=== PATIENT | female | born 1965 | race Caucasian/White ===

== ENCOUNTER 2018-06-08 15:05 | Emergency (ER) | payer OTHER ==
[2018-06-08] MEDS ORDERED: Tetan/Diph/Pertus SYR(Tdap)* 0.5 ML SYR(BOOSTRIX) use SYR IM ONE (15:19)
[2018-06-08] MEDS ORDERED: Sodium Bicarbonate 8.4% SYR* 10 ML SYRINGE IV ONE (16:20)
--- NOTE | 2018-06-08 17:00 | ED ---
Skin Complaint - HPI Summary HPI Summary: Rt hand dominant pt here w/ lac to Lt distal dorsal index finger earlier today. Accidentally cut herself while using scissors. Has been bleeding x 1 hour so came in for evaluation. Denies numbness, tingling, weakness. Last tetanus 12 yrs ago. Does not take anti-coagulants. 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 Hx Obtained From: Patient Pain Intensity: 0 - Additional Pertinent History Primary Care Physician: [id number] - Allergy/Home Medications Allergies/Adverse Reactions: Allergies Allergy/AdvReac Type Severity Reaction Status Date / Time fluoxetine Allergy Anaphylatic Verified 06/08/18 15:11 Shock ENVIRONMENTAL Allergy Dizziness Uncoded 05/10/18 09:05 Home Medications: Home Medications Susie-D 24 Hour Tablet 1 tab PO DAILY PRN 06/08/18 [History Confirmed 06/08/18 ] Cholecalciferol (Vitamin D3) [Vitamin D3] 1 tab PO DAILY 06/08/18 [History Confirmed 06/08/18] Denosumab* [Xgeva*] 1 dose .SEE ORDER SEE INSTRUCTIONS 06/08/18 [History Confirmed 06/08/18] Esomeprazole(NF) [Nexium(NF)] 20 mg PO DAILY PRN 06/08/18 [History Confirmed 08/15] Hydrocortisone TAB* [Cortef TAB*] 10 mg PO BEDTIME 06/08/18 [History Confirmed 06/08/18] Hydrocortisone TAB* [Cortef TAB*] 20 mg PO QAM 06/08/18 [History Confirmed 06/08] Letrozole 2.5 mg PO DAILY 06/08/18 [History Confirmed 06/08/18] Levothyroxine TAB* [Synthroid 88 MCG TAB*] 88 mcg PO QAM 06/08/18 [History Confirmed 06/08/18] Ondansetron [Ondansetron Odt] 1 tab PO Q8H PRN 06/08/18 [History Confirmed 06/08] Palbociclib [Ibrance] 125 mg PO SEE INSTRUCTIONS 06/08/18 [History Confirmed 08/15] ZOLMitriptan [Zolmitriptan Odt] 2.5 mg SL DAILY PRN 06/08/18 [History Confirmed 06/08/18] PMH/Surg Hx/FS Hx/Imm Hx Previously Healthy: Yes Endocrine/Hematology History: Denies: Hx Anticoagulant Therapy, Hx Blood Disorders, Hx Diabetes, Hx Anemia , Autoimmune Disease Cardiovascular History: Denies: Hx Hypertension, Hx Pacemaker/ICD, Hx Syncope Respiratory History: Reports: Other Respiratory Problems/Disorders - HISTORY OF MONTHLY EPISODES OF STREP THROAT - NONE IN 15 YEARS Denies: Hx Asthma GI History: Reports: Other GI Disorders - CONSTIPATION - HX OF NO PROBLEMS NOW Denies: Hx Jaundice History: Reports: Other Problems/Disorders - LAST BLADDER INFECTION 20 YEARS AGO, URGE TO URINATE NOT FELT Denies: Hx Renal Disease Musculoskeletal History: Reports: Hx Orthopedic Injury - R elbow replacement Denies: Hx Rheumatoid Arthritis, Hx Osteoporosis Sensory History: Denies: Hx Contacts or Glasses, Hx Hearing Aid Opthamlomology History: Denies: Hx Contacts or Glasses Neurological History: Reports: Hx Headaches - HX OF Psychiatric History: Denies: Hx Panic Disorder - Cancer History Cancer Type, Location and Year: BREAST - RFANCIA MASTECTOMY Hx Chemotherapy: Yes Hx Radiation Therapy: Yes - Surgical History Surgery Procedure, Year, and Place: 2006 RIGHT ARM FRACTURE, RE[facility], [place]. 2006 LEFT MASTECTOMY, [facility]. 2007 REMOVAL OF PLATE FROM RIGHT ARM, [place]. 2009 REMOVAL OF BILATERAL OVARIES, [facility]. 2011 RECONSTRUCTION OF MASTECTOMY, [facility] - Rt MASTECTOMY AND RECON FRANCIA ( TRANSFLAP). [facility]. 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 10/2016-TUMOR REMOVAL CHEST CAVITY Hx Anesthesia Reactions: No - DO NOT USE LEFT ARM/R/T LYMPH NODE REMOVAL - Immunization History Date of Tetanus Vaccine: 2006 Immunizations Up to Date: No - tetanus 12 yrs ago Infectious Disease History: No Infectious Disease History: Denies: Hx of Known/Suspected MRSA, Traveled Outside the [place] in Last 30 Days - Family History Family History: FHx of osteoporosis (mother) - Social History Alcohol Use: Occasionally Hx Substance Use: No Substance Use Type: Reports: None Hx Tobacco Use: No Smoking Status (MU): Never Smoked Tobacco Review of Systems Positive: no symptoms reported Musculoskeletal: Negative Skin: Other - lac Neurological: Negative Psychological: Normal All Other Systems Reviewed And Are Negative: Yes Physical Exam Triage Information Reviewed: Yes Vital Signs On Initial Exam: Initial Vitals Temp Pulse Resp BP Pulse Ox 96.5 F 78 16 141/92 99 06/08/18 15:06 06/08/18 15:06 06/08/18 15:06 06/08/18 15:06 06/08/18 15:06 Vital Signs Reviewed: Yes Appearance: Positive: Well-Appearing, No Pain Distress, Well-Nourished Skin: Positive: Warm, Skin Color Reflects Adequate Perfusion - liner lac over Lt dorsal distal index finger Cardiovascular: Positive: Pulses are Symmetrical in both Upper and Lower Extremities Musculoskeletal: Positive: Normal, Strength/ROM Intact Neurological: Positive: Normal, Sensory/Motor Intact Psychiatric: Positive: Normal Procedures - Laceration/Wound Repair 1 Location: upper extremity - Lt index finger Description: Linear Length, Depth and Shape: 0.5cm x 2mm Laceration/Wound Explored: clean - soaked in hibaclens and water solution Closure: Skin Adhesive, SteriStrips Layer Closure?: No Sterile Dressing Applied?: Yes - steristrips and adhesive + splint - hemodynamically stable Diagnostics - Vital Signs Vital Signs Temp Pulse Resp BP Pulse Ox 06/08/18 15:06 96.5 F 78 16 141/92 99 - Laboratory Lab Statement: Any lab studies that have been ordered have been reviewed, and results considered in the medical decision making process. Course/Dx - Diagnoses Provider Diagnoses: Laceration of left index finger Discharge - Sign-Out/Discharge Documenting (check all that apply): Patient Departure - Discharge Plan Condition: Stable Disposition: HOME Patient Education Materials: Finger Laceration (ED), Skin Adhesive Care (ED), Steristrips (ED) Referrals: Jonathan Mcgowan NP [Primary Care Provider] - Additional Instructions: Rest, ice, elevate Keep splint in place for 10 days until wound heals Do not wet/soak/or remove steristrips - they will fall off on their own in about 5 days If you develop redness, swelling, streaking, purulent drainage, fever or chills seek medical attention - Billing Disposition and Condition Condition: STABLE Disposition: Home
[2018-06-08 17:37] VITALS: BP 109/72
== END 2018-06-08 17:36 | disposition home or self-care (01) ==
LOC: ED 15:05
DX: S61.211A Laceration without foreign body of left index finger without damage to nail, initial encounter (principal); W45.8XXA Other foreign body or object entering through skin, initial encounter; Y92.9 Unspecified place or not applicable
CPT/HCPCS: 90715; 99282

== ENCOUNTER 2018-11-24 10:42 | Emergency (ER) | payer OTHER ==
--- NOTE | 2018-11-24 12:57 | UC ---
Throat Pain/Nasal Bereket HPI - HPI Summary HPI Summary: PT HAS HAD WORSENING ST AND PAIN WITH SWALLOWING FOR ABOUT A WEEK. NO FEVER, N/ D. IS CURRENTLY UNDERGOING CHEMO FOR BREAST CANCER. - History of Current Complaint Chief Complaint: UCGeneralIllness Stated Complaint: SORE THROAT Time Seen by Provider: 11/24/18 12:22 Hx Obtained From: Patient, Family/Landing Support Specialist - SISTER Onset/Duration: Gradual Onset, Lasting Days, Still Present Severity: Moderate Pain Intensity: 8 Pain Scale Used: 0-10 Numeric Cough: Nonproductive Associated Signs & Symptoms: Negative: Wheezing, Fever, Vomiting - Allergies/Home Medications Allergies/Adverse Reactions: Allergies Allergy/AdvReac Type Severity Reaction Status Date / Time fluoxetine Allergy Anaphylatic Verified 06/08/18 15:11 Shock ENVIRONMENTAL Allergy Dizziness Uncoded 05/10/18 09:05 PMH/Surg Hx/FS Hx/Imm Hx Cancer History: Breast Cancer Other History Of: Negative For: Anticoagulant Therapy - Surgical History Surgical History: Yes Surgery Procedure, Year, and Place: 2006 RIGHT ARM FRACTURE, [facility]IR, [place]. 2006 LEFT MASTECTOMY, [facility]. 2007 REMOVAL OF PLATE FROM RIGHT ARM, [facility]. 2009 REMOVAL OF BILATERAL OVARIES, [facility]. 2011 RECONSTRUCTION OF MASTECTOMY, [facility] - Rt MASTECTOMY AND RECON FRANCIA ( TRANSFLAP). [facility]. 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 10/2016-TUMOR REMOVAL CHEST CAVITY - Family History Family History: FHx of osteoporosis (mother) - Social History Alcohol Use: Occasionally Substance Use Type: None Smoking Status (MU): Never Smoked Tobacco - Immunization History Most Recent Influenza Vaccination: 2014 Most Recent Tetanus Shot: unk Most Recent Pneumonia Vaccination: n/a Review of Systems All Other Systems Reviewed And Are Negative: Yes Constitutional: Positive: Negative ENT: Positive: Sore Throat Respiratory: Positive: Negative Cardiovascular: Positive: Negative Gastrointestinal: Positive: Negative, Abdominal Pain Physical Exam Triage Information Reviewed: Yes Appearance: No Pain Distress, Well-Nourished, Ill-Appearing - APPEARS FATIGUED Vital Signs: Initial Vital Signs Temp 98.4 F 11/24/18 10:56 Pulse 110 11/24/18 10:56 Resp 18 11/24/18 10:56 BP 124/79 11/24/18 10:56 Pulse Ox 98 11/24/18 10:56 Laboratory Tests 11/24/18 12:32 Group A Strep Rapid Negative Vital Signs Reviewed: Yes Eyes: Positive: Conjunctiva Clear ENT: Positive: Hearing grossly normal, Pharyngeal erythema, TMs normal, Hoarse voice Neck: Positive: Supple, Nontender, No Lymphadenopathy Respiratory: Positive: No respiratory distress, No accessory muscle use Cardiovascular: Positive: Pulses Normal Abdomen Description: Positive: Soft Musculoskeletal: Positive: No Edema Neurological: Positive: Alert Psychological: Positive: Age Appropriate Behavior Skin: Negative: Rashes Throat Pain/Nasal Course/Dx - Course Course Of Treatment: PT UNDERGOING CHEMO FOR BREAST CANCER. STREP TEST NEGATIVE. MAY BE VIRAL OR CHEMO RELATED ST BUT GIVEN IMMUNOCOMPROMISED STATE WILL COVER WITH ABX. FOLLOW-UP IF NEEDED. - Differential Dx/Diagnosis Provider Diagnosis: Acute pharyngitis Discharge - Sign-Out/Discharge Documenting (check all that apply): Patient Departure All imaging exams completed and their final reports reviewed: No Studies - Discharge Plan Condition: Stable Disposition: HOME Prescriptions: Amoxicillin PO (*) [Amoxicillin 500 MG CAP*] 500 mg PO Q12H #20 cap Patient Education Materials: Pharyngitis (ED) Referrals: Jonathan Mcgowan NP [Primary Care Provider] - If Needed Additional Instructions: STREP TEST NEGATIVE. GIVEN YOUR IMMUNOCOMPROMISED STATUS WILL COVER WITH ABX. KEEP YOUR APPT WITH DR. BRASHER SCHEDULED. IBUPROFEN NEEDED FOR DISCOMFORT. - Billing Disposition and Condition Condition: STABLE Disposition: Home
[2018-11-24 13:07] VITALS: BP 157/98
== END 2018-11-24 13:07 | disposition home or self-care (01) ==
LOC: UCEAST 10:42
DX: J02.9 Acute pharyngitis, unspecified (principal); C50.919 Malignant neoplasm of unspecified site of unspecified female breast; Z88.8 Allergy status to other drugs, medicaments and biological substances; Z91.09 Other allergy status, other than to drugs and biological substances; Z92.21 Personal history of antineoplastic chemotherapy
CPT/HCPCS: 87651; 99212; G0463

== ENCOUNTER 2022-06-08 11:50 | Inpatient (IN) ==
[2022-06-08] MEDS ORDERED: Dexamethasone IV 10 MG in NS 0.9% 50 ML 50 ML IVPB SCH (15:00)
[2022-06-08 16:31] LABS: Hematocrit 37 % (35-47); Hemoglobin 12.2 g/dL (12.0-16.0); Mean Corpuscular HGB Conc 33 g/dL (31-36); Mean Corpuscular Hemoglobin 34 pg (27-31); Mean Corpuscular Volume 103 fL (80-97); Mean Platelet Volume 7.4 fL (7.4-10.4); Platelet Count 212 10^3/uL (150-450); Red Blood Count 3.56 10^6 /uL (3.70-4.87); Red Cell Distribution Width 18 % (10-15)
[2022-06-08 16:32] LABS: ABS Lymphocytes 0.4 10^3/ul (1.0-4.8); ABS Monocytes 0.5 10^3/ul (0-0.8); ABS Neutrophils 20.1 10^3/ul (1.5-7.7); Eosinophil % 0.1 %; Lymphocyte % 1.7 %
[2022-06-08 17:12] LABS: Albumin 3.3 g/dL (3.2-5.2); Albumin/Globulin Ratio 1.5 (1-3); Calcium 8.8 mg/dL (8.6-10.3); Globulin 2.2 g/dL (2-4); Potassium 4.5 mmol/L (3.5-5.0); Total Bilirubin 0.4 mg/dL (0.2-1.0); Total Protein 5.5 g/dL (6.4-8.9); eGFR CKD-EPI 68.6 (>60)
[2022-06-08 19:55] LABS: C Reactive Protein 20.62 mg/L (<8.01)
[2022-06-09] MEDS: Enoxaparin 40 MG/0.4 ML SYR SUBCUT SCH ×2 (00:21→21:48)
[2022-06-09 06:23] LABS: Hematocrit 36 % (35-47); Hemoglobin 11.1 g/dL (12.0-16.0); Mean Corpuscular HGB Conc 31 g/dL (31-36); Mean Corpuscular Hemoglobin 32 pg (27-31); Mean Corpuscular Volume 101 fL (80-97); Mean Platelet Volume 7.3 fL (7.4-10.4); Platelet Count 204 10^3/uL (150-450); Red Blood Count 3.52 10^6 /uL (3.70-4.87); Red Cell Distribution Width 18 % (10-15); White Blood Count 21.3 10^3/uL (3.5-10.8)
[2022-06-09 07:13] LABS: CRP High Sensitivity 22.51 mg/L (<2.00); Calcium 8.3 mg/dL (8.6-10.3); Potassium 4.6 mmol/L (3.5-5.0); eGFR CKD-EPI 82.7 (>60)
[2022-06-09] MEDS ORDERED: ALLEGRA D PO SCH (09:00)
[2022-06-09] MEDS ORDERED: Letrozole 2.5 MG TAB (NF) PO SCH (09:00)
[2022-06-09 09:03] LABS: ABS Basophils 0.1 10^3/ul (0-0.2); ABS Lymphocytes 0.6 10^3/ul (1.0-4.8); ABS Monocytes 1.4 10^3/ul (0-0.8); ABS Neutrophils 19.2 10^3/ul (1.5-7.7); Lymphocyte % 2.6 %
[2022-06-09] MEDS: Calcium (OSCAL) 500 mg TAB PO SCH (09:56)
[2022-06-09] MEDS: Cholecalciferol (VIT D3) 1,000 unit TAB PO SCH (09:57)
[2022-06-09] MEDS: methylPREDNISolone SOD SUCC 40 mg/ml 1 ml VIAL IV SCH ×2 (12:41→17:59)
[2022-06-10] MEDS: methylPREDNISolone SOD SUCC 40 mg/ml 1 ml VIAL IV SCH ×3 (03:26→18:13)
[2022-06-10 06:22] LABS: ABS Lymphocytes 0.5 10^3/ul (1.0-4.8); ABS Neutrophils 14.8 10^3/ul (1.5-7.7); Eosinophil % 0.1 %; Hematocrit 34 % (35-47); Hemoglobin 10.5 g/dL (12.0-16.0); Lymphocyte % 3.1 %; Mean Corpuscular HGB Conc 31 g/dL (31-36); Mean Corpuscular Hemoglobin 31 pg (27-31); Mean Corpuscular Volume 101 fL (80-97); Mean Platelet Volume 7.5 fL (7.4-10.4); Platelet Count 196 10^3/uL (150-450); Red Blood Count 3.34 10^6 /uL (3.70-4.87); Red Cell Distribution Width 18 % (10-15); White Blood Count 16.3 10^3/uL (3.5-10.8)
[2022-06-10 06:45] LABS: Calcium 8.3 mg/dL (8.6-10.3); Potassium 4.4 mmol/L (3.5-5.0); eGFR CKD-EPI 93.4 (>60)
[2022-06-10] MEDS ORDERED: Flumazenil 0.5 mg/5 ml 0.1 MG/ML 5 ml VIAL ONE (08:03)
[2022-06-10] MEDS ORDERED: Midazolam 5 mg/5 ml VIAL 1 mg/ml 5 ml VIAL (5 mg) ONE (08:03)
[2022-06-10] MEDS ORDERED: Naloxone 0.4 mg VIAL 0.4 mg/ml 1 ml VIAL ONE (08:03)
[2022-06-10] MEDS ORDERED: fentaNYL 100 mcg/2 ml 50 MCG/ML VIAL ONE (08:03)
[2022-06-10] MEDS: Cholecalciferol (VIT D3) 1,000 unit TAB PO SCH (11:17)
[2022-06-10] MEDS: Calcium (OSCAL) 500 mg TAB PO SCH (11:18)
[2022-06-10] MEDS: Enoxaparin 40 MG/0.4 ML SYR SUBCUT SCH (22:09)
[2022-06-11] MEDS: methylPREDNISolone SOD SUCC 40 mg/ml 1 ml VIAL IV SCH ×3 (02:28→19:21)
[2022-06-11 05:00] LABS: ABS Basophils 0.1 10^3/ul (0-0.2); ABS Lymphocytes 0.5 10^3/ul (1.0-4.8); ABS Monocytes 0.9 10^3/ul (0-0.8); ABS Neutrophils 10.8 10^3/ul (1.5-7.7); Eosinophil % 0.1 %; Hematocrit 33 % (35-47); Hemoglobin 10.5 g/dL (12.0-16.0); Lymphocyte % 4.4 %; Mean Corpuscular HGB Conc 32 g/dL (31-36); Mean Corpuscular Hemoglobin 32 pg (27-31); Mean Corpuscular Volume 100 fL (80-97); Platelet Count 193 10^3/uL (150-450); Red Blood Count 3.33 10^6 /uL (3.70-4.87); Red Cell Distribution Width 17 % (10-15); White Blood Count 12.4 10^3/uL (3.5-10.8)
[2022-06-11 05:54] LABS: Calcium 8.5 mg/dL (8.6-10.3); Potassium 4.6 mmol/L (3.5-5.0); eGFR CKD-EPI 87.7 (>60)
[2022-06-11] MEDS: Calcium (OSCAL) 500 mg TAB PO SCH (10:09)
[2022-06-11] MEDS: Cholecalciferol (VIT D3) 1,000 unit TAB PO SCH (10:10)
[2022-06-11] MEDS: Enoxaparin 40 MG/0.4 ML SYR SUBCUT SCH (21:28)
[2022-06-12] MEDS: methylPREDNISolone SOD SUCC 40 mg/ml 1 ml VIAL IV SCH ×2 (02:55→10:07)
[2022-06-12 06:27] LABS: Hematocrit 34 % (35-47); Hemoglobin 10.9 g/dL (12.0-16.0); Mean Corpuscular HGB Conc 32 g/dL (31-36); Mean Corpuscular Hemoglobin 32 pg (27-31); Mean Corpuscular Volume 101 fL (80-97); Platelet Count 198 10^3/uL (150-450); Red Blood Count 3.41 10^6 /uL (3.70-4.87); Red Cell Distribution Width 17 % (10-15); White Blood Count 10.1 10^3/uL (3.5-10.8)
[2022-06-12 07:01] LABS: Calcium 8.8 mg/dL (8.6-10.3); Potassium 4.6 mmol/L (3.5-5.0); eGFR CKD-EPI 93.4 (>60)
[2022-06-12 07:34] LABS: ABS Lymphocytes 0.5 10^3/ul (1.0-4.8); ABS Monocytes 0.8 10^3/ul (0-0.8); ABS Neutrophils 8.8 10^3/ul (1.5-7.7); Eosinophil % 0.1 %; Lymphocyte % 5.1 %
[2022-06-12] MEDS: Cholecalciferol (VIT D3) 1,000 unit TAB PO SCH (09:05)
[2022-06-12] MEDS: Calcium (OSCAL) 500 mg TAB PO SCH (09:05)
[2022-06-12] MEDS: Enoxaparin 40 MG/0.4 ML SYR SUBCUT SCH (21:24)
[2022-06-13 06:10] LABS: Hematocrit 33 % (35-47); Hemoglobin 10.6 g/dL (12.0-16.0); Mean Corpuscular HGB Conc 33 g/dL (31-36); Mean Corpuscular Hemoglobin 33 pg (27-31); Mean Corpuscular Volume 100 fL (80-97); Mean Platelet Volume 7.4 fL (7.4-10.4); Platelet Count 215 10^3/uL (150-450); Red Blood Count 3.26 10^6 /uL (3.70-4.87); Red Cell Distribution Width 17 % (10-15); White Blood Count 10.6 10^3/uL (3.5-10.8)
[2022-06-13 06:12] LABS: ABS Lymphocytes 0.6 10^3/ul (1.0-4.8); ABS Monocytes 0.8 10^3/ul (0-0.8); ABS Neutrophils 9.1 10^3/ul (1.5-7.7); Eosinophil % 0.1 %; Nucleated Red Blood Cells % 0.1
[2022-06-13 06:22] LABS: Calcium 8.9 mg/dL (8.6-10.3); Potassium 4.5 mmol/L (3.5-5.0); eGFR CKD-EPI 86.4 (>60)
[2022-06-13] MEDS: Calcium (OSCAL) 500 mg TAB PO SCH (08:15)
[2022-06-13] MEDS: Cholecalciferol (VIT D3) 1,000 unit TAB PO SCH (08:16)
[2022-06-13 11:22] VITALS: BP 144/73
[2022-06-13] MEDS ORDERED: Furosemide 20 mg/2 ml IV VIAL IV ONE (11:58)
[2022-06-13 15:54] LABS: Parvovirus (B19) IgG Antibody Positive (Negative); Parvovirus (B19) IgM Antibody Negative (Negative)
== END 2022-06-13 13:30 | disposition home or self-care (01) | DRG 385 ==
LOC: ED 11:50 → EDHOLD 11:50 → MED 06-09 08:54
PROVIDERS: ADMIT Internal Medicine; ATTEND Internal Medicine

== ENCOUNTER 2022-10-16 09:46 | Observation (INO) ==
[2022-10-16 11:25] LABS: Hematocrit 25 % (35-47); Hemoglobin 8.2 g/dL (12.0-16.0); Mean Corpuscular HGB Conc 33 g/dL (31-36); Mean Corpuscular Hemoglobin 34 pg (27-31); Mean Corpuscular Volume 104 fL (80-97); Mean Platelet Volume 8.2 fL (7.4-10.4); Platelet Count 135 10^3/uL (150-450); Red Cell Distribution Width 21 % (10-15); White Blood Count 7.7 10^3/uL (3.5-10.8)
[2022-10-16 12:10] LABS: Albumin 2.7 g/dL (3.2-5.2); Albumin/Globulin Ratio 1.6 (1-3); C Reactive Protein 121.32 mg/L (<8.01); Creatinine, Serum 1.69 mg/dL (0.51-0.95); Globulin 1.7 g/dL (2-4); Magnesium 2.3 mg/dL (1.9-2.7); Phosphorus 2.8 mg/dL (2.5-5.0); Potassium 2.9 mmol/L (3.5-5.0); Total Bilirubin 0.9 mg/dL (0.2-1.0); Total Protein 4.4 g/dL (6.4-8.9); eGFR CKD-EPI 35.2 (>60)
[2022-10-16] MEDS ORDERED: Potassium Chlor 20 meq TAB.ER PO ONE (12:18)
[2022-10-16] MEDS ORDERED: NS 0.9% 500 ml BAG 500 ML IV ONE (12:32)
[2022-10-16 12:38] LABS: Anisocytosis 2+; Macrocytosis 1+; Polychromasia 1+; Tear Drop Cells 1+
[2022-10-16 12:39] LABS: ABS Lymphocytes 0.4 10^3/ul (1.0-4.8); ABS Monocytes 0.1 10^3/ul (0-0.8); ABS Neutrophils 7.2 10^3/ul (1.5-7.7); Eosinophil % 0.2 %
[2022-10-16] MEDS: KCL 10 MEQ/50 ML IVPREMIX 10 MEQ/50 ML BAG IV SCH ×3 (12:59→15:55)
[2022-10-16] MEDS ORDERED: Lactated Ringers 1000 ml BAG 1,000 ML IV ONE (13:50)
[2022-10-16] MEDS ORDERED: Enoxaparin 30 MG/0.3 ML SYR SUBCUT SCH (14:00)
[2022-10-17 08:12] LABS: ABS Lymphocytes 0.2 10^3/ul (1.0-4.8); ABS Monocytes 0.1 10^3/ul (0-0.8); ABS Neutrophils 6.9 10^3/ul (1.5-7.7); Eosinophil % 0.1 %; Hematocrit 23 % (35-47); Hemoglobin 7.3 g/dL (12.0-16.0); Lymphocyte % 2.6 %; Mean Corpuscular HGB Conc 33 g/dL (31-36); Mean Corpuscular Hemoglobin 34 pg (27-31); Mean Corpuscular Volume 105 fL (80-97); Mean Platelet Volume 7.9 fL (7.4-10.4); Platelet Count 127 10^3/uL (150-450); Red Blood Count 2.14 10^6 /uL (3.70-4.87); Red Cell Distribution Width 21 % (10-15); White Blood Count 7.1 10^3/uL (3.5-10.8)
[2022-10-17 08:51] LABS: Urine Appearance Cloudy; Urine Bilirubin Negative (Negative); Urine Blood 3+ (Negative); Urine Color Yellow; Urine Glucose Negative (Negative); Urine Ketones Negative (Negative); Urine Nitrite Negative (Negative); Urine Protein 1+(30 mg/dL) (Negative); Urine Specific Gravity 1.009 (1.002-1.030); Urine Urobilinogen Negative (Negative)
[2022-10-17 08:57] LABS: Urine Bacteria Absent (Absent); Urine Red Blood Cell 3+(>10/hpf) (Absent); Urine Squamous Epithelial Cell Present (Absent); Urine White Blood Cell 2+(11-20/hpf) (Absent)
[2022-10-17 10:21] LABS: Calcium 6.9 mg/dL (8.6-10.3); Potassium 3.9 mmol/L (3.5-5.0)
[2022-10-17 10:27] LABS: Creatinine, Serum 1.43 mg/dL (0.51-0.95)
[2022-10-17 11:32] VITALS: BP 128/74
== END 2022-10-17 12:55 | disposition home or self-care (01) ==
LOC: EDHOLD 09:46 → ED 09:46 → MEDTELE 16:00
PROVIDERS: ADMIT Student in an Organized Health Care Education/Training Program; ATTEND Student in an Organized Health Care Education/Training Program

== ENCOUNTER 2022-11-27 12:45 | Inpatient (IN) ==
[2022-11-27 15:31] LABS: Hematocrit 23 % (35-47); Hemoglobin 7.5 g/dL (12.0-16.0); Mean Corpuscular HGB Conc 32 g/dL (31-36); Mean Corpuscular Hemoglobin 34 pg (27-31); Mean Corpuscular Volume 105 fL (80-97); Mean Platelet Volume 8.2 fL (7.4-10.4); Platelet Count 222 10^3/uL (150-450); Red Cell Distribution Width 21 % (10-15); White Blood Count 7.5 10^3/uL (3.5-10.8)
[2022-11-27 16:12] LABS: Albumin/Globulin Ratio 1.6 (1-3); Calcium 7.9 mg/dL (8.6-10.3); Creatinine, Serum 1.58 mg/dL (0.51-0.95); Globulin 1.9 g/dL (2-4); Total Bilirubin 1.2 mg/dL (0.2-1.0); Total Protein 4.9 g/dL (6.4-8.9); eGFR CKD-EPI 38.2 (>60)
[2022-11-27] MEDS ORDERED: Furosemide 40 mg/4 ml IV VIAL IV SLOW PU ONE ×2 (16:27→18:26)
[2022-11-27 17:02] LABS: High Sensitivity Troponin 1 Hr 46 pg/mL (<15)
[2022-11-27 17:27] LABS: Anisocytosis 3+
[2022-11-27 17:28] LABS: Basophilic Stippling 1+; Macrocytosis 1+; Polychromasia 1+
[2022-11-27 17:29] LABS: Tear Drop Cells 1+
[2022-11-27 17:53] LABS: ABS Lymphocytes 0.9 10^3/ul (1.0-4.8); ABS Monocytes 1.2 10^3/ul (0-0.8); ABS Neutrophils 5.3 10^3/ul (1.5-7.7); ABS Nucleated RBC 0.2 10^3/ul; Eosinophil % 0.4 %; Lymphocyte % 11.9 %; Nucleated Red Blood Cells % 3.1
[2022-11-27] MEDS ORDERED: Triamcinolone 0.025% OINT 15 GM TUBE TOPICAL PRN (18:18)
[2022-11-27 18:44] LABS: TSH Ultra Thyroid Stim Horm 0.01 mcIU/mL (0.34-5.60)
[2022-11-27 18:52] LABS: Folate 9.84 ng/mL (5.90-24.80)
[2022-11-27 20:17] LABS: T4, Total 12.8 mcg/dL (6.09-12.23)
[2022-11-27 20:21] LABS: Free T3 1.5 pg/mL (2.5-3.9)
[2022-11-27] MEDS: Enoxaparin 30 MG/0.3 ML SYR SUBCUT SCH (20:43)
[2022-11-27] MEDS: Nystatin SUSPENSION 100,000 UNITS/ML UDC SWISH SWAL SCH (20:44)
[2022-11-27] MEDS: guaiFENesin/CODIENE 100mg/10mg 5 ML UDC PO SCH (20:44)
[2022-11-28 06:07] LABS: Hematocrit 26 % (35-47); Hemoglobin 8.5 g/dL (12.0-16.0); Mean Corpuscular HGB Conc 33 g/dL (31-36); Mean Corpuscular Hemoglobin 33 pg (27-31); Mean Corpuscular Volume 100 fL (80-97); Mean Platelet Volume 8.4 fL (7.4-10.4); Platelet Count 204 10^3/uL (150-450); Red Blood Count 2.56 10^6 /uL (3.70-4.87); Red Cell Distribution Width 24 % (10-15); White Blood Count 8.3 10^3/uL (3.5-10.8)
[2022-11-28 06:41] LABS: Creatinine, Serum 1.71 mg/dL (0.51-0.95); Potassium 3.9 mmol/L (3.5-5.0)
[2022-11-28 06:42] LABS: Calcium 7.5 mg/dL (8.6-10.3); HDL Cholesterol 28.6 mg/dL; Magnesium 2.2 mg/dL (1.9-2.7); eGFR CKD-EPI 34.7 (>60)
[2022-11-28] MEDS ORDERED: KCL 10 MEQ/50 ML IVPREMIX 10 MEQ/50 ML BAG IV ONE (07:53)
[2022-11-28] MEDS: guaiFENesin/CODIENE 100mg/10mg 5 ML UDC PO SCH ×3 (09:04→21:28)
[2022-11-28] MEDS: Nystatin SUSPENSION 100,000 UNITS/ML UDC SWISH SWAL SCH ×4 (09:05→21:30)
[2022-11-28] MEDS ORDERED: Furosemide 40 mg/4 ml IV VIAL IV ONE (09:25)
[2022-11-28 09:28] LABS: Anisocytosis 2+; Macrocytosis 1+; Polychromasia 1+
[2022-11-28 09:36] LABS: ABS Basophils 0.1 10^3/ul (0-0.2); ABS Eosinophils 0.1 10^3/ul (0-0.6); ABS Lymphocytes 0.9 10^3/ul (1.0-4.8); ABS Monocytes 1.2 10^3/ul (0-0.8); ABS Neutrophils 6.1 10^3/ul (1.5-7.7); ABS Nucleated RBC 0.2 10^3/ul; Eosinophil % 0.6 %; Lymphocyte % 10.7 %; Nucleated Red Blood Cells % 2.5
[2022-11-28] MEDS ORDERED: Metoprolol Tartrate 5 mg VIAL 5 ml VIAL (1 mg/ml) IV PRN (14:40)
[2022-11-28] MEDS: Metoprolol Tartrate 5 mg VIAL 5 ml VIAL (1 mg/ml) IV PRN (15:07)
[2022-11-28 20:02] LABS: Body Fluid WBC 63 /mcL
[2022-11-28 21:12] LABS: Body Fluid Appearance Clear; Body Fluid Color Yellow
[2022-11-28] MEDS: Enoxaparin 30 MG/0.3 ML SYR SUBCUT SCH (21:28)
[2022-11-28 22:46] LABS: Body Fluid Mono 91 %; Body Fluid Other Cells 34; Body Fluid Total Cells Counted 200
[2022-11-29 05:52] LABS: Corrected Retic Count 4.2 % (0.5-1.5); Hematocrit 24 % (35-47); Hematocrit for Retic CNT 24 % (35-47); Immature Retic Fraction 0.63; Mean Corpuscular HGB Conc 33 g/dL (31-36); Mean Corpuscular Hemoglobin 33 pg (27-31); Mean Corpuscular Volume 99 fL (80-97); Mean Platelet Volume 8.5 fL (7.4-10.4); Platelet Count 193 10^3/uL (150-450); RBC Retic Count 2.44 10^6/uL (3.70-4.87); Red Blood Count 2.44 10^6 /uL (3.70-4.87); Red Cell Distribution Width 24 % (10-15); White Blood Count 10.8 10^3/uL (3.5-10.8)
[2022-11-29 06:22] LABS: Calcium 7.4 mg/dL (8.6-10.3); Creatinine, Serum 1.75 mg/dL (0.51-0.95); Magnesium 2.1 mg/dL (1.9-2.7); Potassium 4.3 mmol/L (3.5-5.0); Uric Acid 12.2 mg/dL (2.3-6.6); eGFR CKD-EPI 33.8 (>60)
[2022-11-29 07:20] LABS: RBC Morphology Normal (Normal)
[2022-11-29 07:21] LABS: ABS Eosinophils 0.1 10^3/ul (0-0.6); ABS Monocytes 1.8 10^3/ul (0-0.8); ABS Nucleated RBC 0.1 10^3/ul; Eosinophil % 0.5 %; Lymphocyte % 8.8 %; Nucleated Red Blood Cells % 1.2
[2022-11-29] MEDS: guaiFENesin/CODIENE 100mg/10mg 5 ML UDC PO SCH ×3 (08:07→23:11)
[2022-11-29] MEDS: Nystatin SUSPENSION 100,000 UNITS/ML UDC SWISH SWAL SCH ×4 (08:07→23:11)
[2022-11-29] MEDS ORDERED: Rasburicase 1.5 MG VIAL(NF) IVPB ONE (08:47)
[2022-11-29] MEDS ORDERED: Furosemide 20 mg/2 ml IV VIAL IV ONE (09:01)
[2022-11-29] MEDS ORDERED: Furosemide 40 mg/4 ml IV VIAL IV ONE (16:56)
[2022-11-29 17:34] LABS: Urine Appearance Cloudy; Urine Bilirubin Negative (Negative); Urine Blood 3+ (Negative); Urine Color Yellow; Urine Glucose Negative (Negative); Urine Ketones Negative (Negative); Urine Nitrite Negative (Negative); Urine Protein 1+(30 mg/dL) (Negative); Urine Specific Gravity 1.009 (1.002-1.030); Urine Urobilinogen Negative (Negative)
[2022-11-29 17:36] LABS: Urine Bacteria Absent (Absent); Urine Red Blood Cell 2+(6-10/hpf) (Absent); Urine Squamous Epithelial Cell Present (Absent); Urine White Blood Cell 3+(>20/hpf) (Absent)
[2022-11-29] MEDS: Enoxaparin 30 MG/0.3 ML SYR SUBCUT SCH (23:12)
[2022-11-29] MEDS: CLOBETASOL 0.05% TOPICAL SCH (23:17)
[2022-11-30] MEDS: Levothyroxine 100 MCG/5 ML VIAL IV SCH (05:33)
[2022-11-30 06:41] LABS: Urine TP Concentration 20 mg/dL
[2022-11-30 07:07] LABS: Hematocrit 24 % (35-47); Hemoglobin 7.7 g/dL (12.0-16.0); Mean Corpuscular HGB Conc 33 g/dL (31-36); Mean Corpuscular Hemoglobin 33 pg (27-31); Mean Corpuscular Volume 100 fL (80-97); Mean Platelet Volume 8.5 fL (7.4-10.4); Platelet Count 186 10^3/uL (150-450); Red Blood Count 2.36 10^6 /uL (3.70-4.87); Red Cell Distribution Width 24 % (10-15); White Blood Count 14.7 10^3/uL (3.5-10.8)
[2022-11-30 07:25] LABS: Calcium 7.3 mg/dL (8.6-10.3); Creatinine, Serum 1.52 mg/dL (0.51-0.95); Phosphorus 4.3 mg/dL (2.5-5.0); Potassium 3.8 mmol/L (3.5-5.0)
[2022-11-30] MEDS ORDERED: Potassium EFFERVES 25 meq TAB PO ONE (07:59)
[2022-11-30 08:17] LABS: Macrocytosis 1+
[2022-11-30 08:18] LABS: Anisocytosis 2+; Polychromasia 1+
[2022-11-30 08:19] LABS: ABS Basophils 0.1 10^3/ul (0-0.2); ABS Eosinophils 0.1 10^3/ul (0-0.6); ABS Lymphocytes 1.1 10^3/ul (1.0-4.8); ABS Monocytes 2.3 10^3/ul (0-0.8); ABS Neutrophils 11.2 10^3/ul (1.5-7.7); ABS Nucleated RBC 0.2 10^3/ul; Eosinophil % 0.5 %; Lymphocyte % 7.6 %; Nucleated Red Blood Cells % 1.1
[2022-11-30] MEDS: guaiFENesin/CODIENE 100mg/10mg 5 ML UDC PO SCH ×2 (08:40→14:29)
[2022-11-30] MEDS: Nystatin SUSPENSION 100,000 UNITS/ML UDC SWISH SWAL SCH ×4 (08:41→20:50)
[2022-11-30] MEDS: CLOBETASOL 0.05% TOPICAL SCH ×2 (08:44→20:54)
[2022-11-30] MEDS: Furosemide 40 mg/4 ml IV VIAL IV SCH (11:02)
[2022-11-30] MEDS: cefTRIAXone 1 gm/50 mL D5W 1 GM/50 ML BAG IV SCH (12:03)
[2022-12-01] MEDS: guaiFENesin/CODIENE 100mg/10mg 5 ML UDC PO SCH ×3 (00:07→21:55)
[2022-12-01] MEDS: Levothyroxine 100 MCG/5 ML VIAL IV SCH (05:47)
[2022-12-01 07:07] LABS: Calcium 7.5 mg/dL (8.6-10.3); Creatinine, Serum 1.48 mg/dL (0.51-0.95); Magnesium 1.9 mg/dL (1.9-2.7); Potassium 4.3 mmol/L (3.5-5.0); eGFR CKD-EPI 41.3 (>60)
[2022-12-01 07:16] LABS: Hematocrit 29 % (35-47); Hemoglobin 9.8 g/dL (12.0-16.0); Mean Corpuscular HGB Conc 34 g/dL (31-36); Mean Corpuscular Hemoglobin 33 pg (27-31); Mean Corpuscular Volume 97 fL (80-97); Platelet Count 174 10^3/uL (150-450); Red Blood Count 2.97 10^6 /uL (3.70-4.87); Red Cell Distribution Width 23 % (10-15); White Blood Count 20.1 10^3/uL (3.5-10.8)
[2022-12-01] MEDS ORDERED: Magnesium Sulfate IV 1GM/100ML 1 GM/100 ML BAG IV ONE (07:16)
[2022-12-01 08:11] LABS: Uric Acid 10.9 mg/dL (2.3-6.6)
[2022-12-01 08:14] LABS: Anisocytosis 1+; Macrocytosis 1+; Polychromasia 1+
[2022-12-01 08:16] LABS: ABS Basophils 0.1 10^3/ul (0-0.2); ABS Eosinophils 0.1 10^3/ul (0-0.6); ABS Lymphocytes 1.1 10^3/ul (1.0-4.8); ABS Neutrophils 15.9 10^3/ul (1.5-7.7); ABS Nucleated RBC 0.4 10^3/ul; Eosinophil % 0.3 %; Lymphocyte % 5.3 %; Nucleated Red Blood Cells % 1.9
[2022-12-01] MEDS ORDERED: Sulfur Hexaflouride MICROSPHR 25 MG VIAL ONE (08:58)
[2022-12-01] MEDS: Furosemide 40 mg/4 ml IV VIAL IV SCH (10:01)
[2022-12-01] MEDS: Nystatin SUSPENSION 100,000 UNITS/ML UDC SWISH SWAL SCH ×4 (10:02→21:56)
[2022-12-01] MEDS: CLOBETASOL 0.05% TOPICAL SCH ×2 (10:16→21:56)
[2022-12-01] MEDS ORDERED: Lidocaine 1% VIAL 10 MG/ML VIAL 30 ML INJ ONE (10:29)
[2022-12-01] MEDS ORDERED: Furosemide 40 mg/4 ml IV VIAL IV ONE (11:04)
[2022-12-01] MEDS: cefTRIAXone 1 gm/50 mL D5W 1 GM/50 ML BAG IV SCH (11:28)
[2022-12-01] MEDS ORDERED: Warfarin per PHARMACY **NOTE FOLLOW UP SCH (12:00)
[2022-12-01 12:37] LABS: INR 1.99 (0.88-1.18)
[2022-12-01 15:48] LABS: Fluid Type: PLEURAL; Triglycerides (BF) 21 mg/dL
[2022-12-01] MEDS: Enoxaparin 100 MG/ML SYR SUBCUT SCH (21:56)
[2022-12-02 05:41] LABS: Hematocrit 28 % (35-47); Hemoglobin 9.5 g/dL (12.0-16.0); Mean Corpuscular HGB Conc 34 g/dL (31-36); Mean Corpuscular Hemoglobin 34 pg (27-31); Mean Corpuscular Volume 99 fL (80-97); Mean Platelet Volume 8.5 fL (7.4-10.4); Platelet Count 181 10^3/uL (150-450); Red Blood Count 2.83 10^6 /uL (3.70-4.87); Red Cell Distribution Width 22 % (10-15)
[2022-12-02 05:44] LABS: INR 1.5 (0.88-1.18)
[2022-12-02 06:02] LABS: Calcium 7.5 mg/dL (8.6-10.3); Creatinine, Serum 1.38 mg/dL (0.51-0.95); Phosphorus 4.5 mg/dL (2.5-5.0); eGFR CKD-EPI 44.9 (>60)
[2022-12-02] MEDS: Levothyroxine 100 MCG/5 ML VIAL IV SCH (06:09)
[2022-12-02 07:48] LABS: ABS Basophils 0.1 10^3/ul (0-0.2); ABS Eosinophils 0.1 10^3/ul (0-0.6); ABS Monocytes 3.4 10^3/ul (0-0.8); ABS Neutrophils 18.5 10^3/ul (1.5-7.7); ABS Nucleated RBC 0.2 10^3/ul; Anisocytosis 2+; Eosinophil % 0.2 %; Lymphocyte % 4.4 %; Macrocytosis 1+; Nucleated Red Blood Cells % 0.7; Polychromasia 1+
[2022-12-02] MEDS: CLOBETASOL 0.05% TOPICAL SCH ×2 (09:00→21:11)
[2022-12-02] MEDS: Enoxaparin 100 MG/ML SYR SUBCUT SCH ×2 (09:00→21:11)
[2022-12-02] MEDS: Nystatin SUSPENSION 100,000 UNITS/ML UDC SWISH SWAL SCH ×4 (09:01→21:10)
[2022-12-02] MEDS: guaiFENesin/CODIENE 100mg/10mg 5 ML UDC PO SCH ×2 (09:01→21:10)
[2022-12-02] MEDS: Metoprolol Tartrate 5 mg VIAL 5 ml VIAL (1 mg/ml) IV PRN (09:35)
[2022-12-02] MEDS ORDERED: Furosemide 40 mg/4 ml IV VIAL IV ONE (10:13)
[2022-12-02 10:25] LABS: Corrected Retic Count 6.9 % (0.5-1.5); Hematocrit for Retic CNT 30 % (35-47); Immature Retic Fraction 0.49; RBC Retic Count 3.03 10^6/uL (3.70-4.87)
[2022-12-02] MEDS: cefTRIAXone 1 gm/50 mL D5W 1 GM/50 ML BAG IV SCH (11:56)
[2022-12-02 12:17] LABS: Fluid Type, Protein, Total PLEURAL (EFFUSION); Glucose, BF 98 mg/dL; Total Protein, BF 1.9 g/dL
[2022-12-02 12:20] LABS: Albumin, BF 1.2 g/dL; Fluid Type, Albumin PLEURAL
[2022-12-02 12:21] LABS: Lactate Dehydrogenase, BF 167 U/L
[2022-12-03] MEDS: Levothyroxine 100 MCG/5 ML VIAL IV SCH (06:11)
[2022-12-03 06:56] LABS: INR 1.51 (0.88-1.18)
[2022-12-03 08:50] LABS: Hematocrit 32 % (35-47); Hemoglobin 10.5 g/dL (12.0-16.0); Mean Corpuscular HGB Conc 33 g/dL (31-36); Mean Corpuscular Hemoglobin 34 pg (27-31); Mean Corpuscular Volume 102 fL (80-97); Mean Platelet Volume 8.7 fL (7.4-10.4); Platelet Count 193 10^3/uL (150-450); Red Blood Count 3.13 10^6 /uL (3.70-4.87); Red Cell Distribution Width 24 % (10-15); White Blood Count 26.9 10^3/uL (3.5-10.8)
[2022-12-03] MEDS: guaiFENesin/CODIENE 100mg/10mg 5 ML UDC PO SCH ×2 (09:06→20:16)
[2022-12-03] MEDS: Nystatin SUSPENSION 100,000 UNITS/ML UDC SWISH SWAL SCH ×4 (09:07→20:16)
[2022-12-03] MEDS: CLOBETASOL 0.05% TOPICAL SCH ×2 (09:09→20:17)
[2022-12-03 09:31] LABS: Calcium 8.1 mg/dL (8.6-10.3); Creatinine, Serum 1.34 mg/dL (0.51-0.95); Magnesium 1.9 mg/dL (1.9-2.7); Potassium 3.7 mmol/L (3.5-5.0); eGFR CKD-EPI 46.5 (>60)
[2022-12-03] MEDS ORDERED: Magnesium Sulfate IV 1GM/100ML 1 GM/100 ML BAG IV ONE (09:32)
[2022-12-03 10:34] LABS: Anisocytosis 2+; Basophilic Stippling 1+; Macrocytosis 1+; Polychromasia 1+
[2022-12-03 10:35] LABS: ABS Basophils 0.2 10^3/ul (0-0.2); ABS Eosinophils 0.1 10^3/ul (0-0.6); ABS Lymphocytes 1.5 10^3/ul (1.0-4.8); ABS Nucleated RBC 0.2 10^3/ul; Eosinophil % 0.4 %; Lymphocyte % 5.7 %; Nucleated Red Blood Cells % 0.7
[2022-12-03] MEDS: Bumetanide IV 0.25 MG/ML 4 ml VIAL (1 mg) IV SLOW PU SCH ×2 (12:41→20:16)
[2022-12-03] MEDS: cefTRIAXone 1 gm/50 mL D5W 1 GM/50 ML BAG IV SCH (12:52)
[2022-12-03] MEDS ORDERED: Bumetanide IV 0.25 MG/ML 4 ml VIAL (1 mg) IV SLOW PU SCH (21:00)
[2022-12-04] MEDS: Metoprolol Tartrate 5 mg VIAL 5 ml VIAL (1 mg/ml) IV PRN (00:34)
[2022-12-04] MEDS: Levothyroxine 100 MCG/5 ML VIAL IV SCH (05:45)
[2022-12-04 06:26] LABS: INR 1.63 (0.88-1.18)
[2022-12-04 06:47] LABS: Calcium 7.7 mg/dL (8.6-10.3); Creatinine, Serum 1.28 mg/dL (0.51-0.95); Potassium 3.6 mmol/L (3.5-5.0); eGFR CKD-EPI 49.2 (>60)
[2022-12-04] MEDS ORDERED: Potassium EFFERVES 25 meq TAB PO ONE ×2 (07:21)
[2022-12-04] MEDS: guaiFENesin/CODIENE 100mg/10mg 5 ML UDC PO SCH ×2 (08:55→21:39)
[2022-12-04] MEDS: Nystatin SUSPENSION 100,000 UNITS/ML UDC SWISH SWAL SCH ×4 (08:56→21:36)
[2022-12-04] MEDS: Bumetanide IV 0.25 MG/ML 4 ml VIAL (1 mg) IV SLOW PU SCH ×2 (08:57→21:41)
[2022-12-04 10:26] LABS: AMLAF Result Summary Normal; AMLAF Source L PIC
[2022-12-04] MEDS: cefTRIAXone 1 gm/50 mL D5W 1 GM/50 ML BAG IV SCH (11:57)
[2022-12-04] MEDS: CLOBETASOL 0.05% TOPICAL SCH ×2 (11:58→21:34)
[2022-12-05] MEDS: Levothyroxine 100 MCG/5 ML VIAL IV SCH (05:27)
[2022-12-05 06:03] LABS: Hematocrit 27 % (35-47); Hemoglobin 8.5 g/dL (12.0-16.0); Mean Corpuscular HGB Conc 31 g/dL (31-36); Mean Corpuscular Hemoglobin 32 pg (27-31); Mean Corpuscular Volume 102 fL (80-97); Mean Platelet Volume 8.7 fL (7.4-10.4); Platelet Count 182 10^3/uL (150-450); Red Blood Count 2.66 10^6 /uL (3.70-4.87); Red Cell Distribution Width 23 % (10-15)
[2022-12-05 06:12] LABS: INR 1.5 (0.88-1.18)
[2022-12-05 06:22] LABS: Calcium 7.9 mg/dL (8.6-10.3); Creatinine, Serum 1.19 mg/dL (0.51-0.95); Potassium 3.8 mmol/L (3.5-5.0); eGFR CKD-EPI 53.7 (>60)
[2022-12-05] MEDS ORDERED: Potassium EFFERVES 25 meq TAB PO ONE (07:22)
[2022-12-05 07:24] LABS: ABS Basophils 0.1 10^3/ul (0-0.2); ABS Eosinophils 0.1 10^3/ul (0-0.6); ABS Lymphocytes 1.1 10^3/ul (1.0-4.8); ABS Monocytes 3.1 10^3/ul (0-0.8); ABS Neutrophils 21.6 10^3/ul (1.5-7.7); ABS Nucleated RBC 0.2 10^3/ul; Eosinophil % 0.3 %; Lymphocyte % 4.4 %; Nucleated Red Blood Cells % 0.9
[2022-12-05] MEDS: Nystatin SUSPENSION 100,000 UNITS/ML UDC SWISH SWAL SCH ×4 (09:04→21:05)
[2022-12-05] MEDS: guaiFENesin/CODIENE 100mg/10mg 5 ML UDC PO SCH ×2 (09:06→21:05)
[2022-12-05] MEDS: CLOBETASOL 0.05% TOPICAL SCH ×2 (09:06→21:29)
[2022-12-05] MEDS: Bumetanide IV 0.25 MG/ML 4 ml VIAL (1 mg) IV SLOW PU SCH ×2 (09:06→21:05)
[2022-12-06] MEDS: Levothyroxine 100 MCG/5 ML VIAL IV SCH (06:03)
[2022-12-06 07:40] LABS: Hematocrit 25 % (35-47); Hemoglobin 7.8 g/dL (12.0-16.0); Mean Corpuscular HGB Conc 32 g/dL (31-36); Mean Corpuscular Hemoglobin 33 pg (27-31); Mean Corpuscular Volume 104 fL (80-97); Mean Platelet Volume 9.1 fL (7.4-10.4); Platelet Count 173 10^3/uL (150-450); Red Blood Count 2.36 10^6 /uL (3.70-4.87); Red Cell Distribution Width 28 % (10-15)
[2022-12-06 08:09] LABS: Calcium 7.9 mg/dL (8.6-10.3); Creatinine, Serum 1.13 mg/dL (0.51-0.95); Potassium 4.5 mmol/L (3.5-5.0); eGFR CKD-EPI 57.1 (>60)
[2022-12-06 09:23] LABS: Anisocytosis 3+; Macrocytosis 1+; Polychromasia 2+
[2022-12-06 09:26] LABS: Basophilic Stippling 1+; Schistocytes 1+; Tear Drop Cells 1+
[2022-12-06 09:27] LABS: ABS Basophils 0.4 10^3/ul (0-0.2); ABS Eosinophils 0.1 10^3/ul (0-0.6); ABS Lymphocytes 0.8 10^3/ul (1.0-4.8); ABS Monocytes 2.9 10^3/ul (0-0.8); ABS Neutrophils 21.9 10^3/ul (1.5-7.7); ABS Nucleated RBC 0.1 10^3/ul; Eosinophil % 0.3 %; Lymphocyte % 3.2 %; Nucleated Red Blood Cells % 0.5
[2022-12-06] MEDS: Nystatin SUSPENSION 100,000 UNITS/ML UDC SWISH SWAL SCH ×4 (10:24→20:21)
[2022-12-06] MEDS: guaiFENesin/CODIENE 100mg/10mg 5 ML UDC PO SCH ×2 (10:26→20:20)
[2022-12-06] MEDS: CLOBETASOL 0.05% TOPICAL SCH ×2 (10:26→20:25)
[2022-12-07] MEDS: Levothyroxine 100 MCG/5 ML VIAL IV SCH (05:10)
[2022-12-07 07:20] LABS: Hematocrit 24 % (35-47); Hemoglobin 7.7 g/dL (12.0-16.0); Mean Corpuscular HGB Conc 33 g/dL (31-36); Mean Corpuscular Hemoglobin 34 pg (27-31); Mean Corpuscular Volume 105 fL (80-97); Mean Platelet Volume 8.8 fL (7.4-10.4); Platelet Count 171 10^3/uL (150-450); Red Blood Count 2.25 10^6 /uL (3.70-4.87); Red Cell Distribution Width 25 % (10-15); White Blood Count 25.3 10^3/uL (3.5-10.8)
[2022-12-07 07:52] LABS: Blood Urea Nitrogen 21 mg/dL (6-24); CO2 Carbon Dioxide 36 mmol/L (22-32); Calcium 7.9 mg/dL (8.6-10.3); Chloride 104 mmol/L (101-111); Creatinine, Serum 1.28 mg/dL (0.51-0.95); Glucose 66 mg/dL (70-100); Potassium 4.7 mmol/L (3.5-5.0); Sodium 140 mmol/L (135-145); eGFR CKD-EPI 49.2 (>60)
[2022-12-07] MEDS: Nystatin SUSPENSION 100,000 UNITS/ML UDC SWISH SWAL SCH ×2 (07:58→13:17)
[2022-12-07] MEDS: guaiFENesin/CODIENE 100mg/10mg 5 ML UDC PO SCH ×3 (07:58→21:35)
[2022-12-07] MEDS: CLOBETASOL 0.05% TOPICAL SCH ×2 (08:03→21:48)
[2022-12-07 09:20] LABS: Anisocytosis 2+; Basophilic Stippling 1+; Macrocytosis 1+; Polychromasia 1+
[2022-12-07 09:21] LABS: ABS Basophils 0.2 10^3/ul (0-0.2); ABS Eosinophils 0.1 10^3/ul (0-0.6); ABS Lymphocytes 0.9 10^3/ul (1.0-4.8); ABS Monocytes 2.9 10^3/ul (0-0.8); ABS Neutrophils 21.2 10^3/ul (1.5-7.7); ABS Nucleated RBC 0.2 10^3/ul; Eosinophil % 0.2 %; Lymphocyte % 3.5 %; Nucleated Red Blood Cells % 0.8
[2022-12-08 06:34] LABS: ABS Eosinophils 0.1 10^3/ul (0-0.6); ABS Lymphocytes 0.7 10^3/ul (1.0-4.8); ABS Monocytes 2.7 10^3/ul (0-0.8); ABS Nucleated RBC 0.1 10^3/ul; Eosinophil % 0.3 %; Hematocrit 24 % (35-47); Hemoglobin 7.5 g/dL (12.0-16.0); Lymphocyte % 3.1 %; Mean Corpuscular HGB Conc 32 g/dL (31-36); Mean Corpuscular Hemoglobin 34 pg (27-31); Mean Corpuscular Volume 106 fL (80-97); Nucleated Red Blood Cells % 0.5; Platelet Count 184 10^3/uL (150-450); Red Blood Count 2.21 10^6 /uL (3.70-4.87); Red Cell Distribution Width 26 % (10-15); White Blood Count 23.5 10^3/uL (3.5-10.8)
[2022-12-08 06:56] LABS: Calcium 7.8 mg/dL (8.6-10.3); Creatinine, Serum 1.3 mg/dL (0.51-0.95); Magnesium 2.2 mg/dL (1.9-2.7); Potassium 4.2 mmol/L (3.5-5.0); eGFR CKD-EPI 48.3 (>60)
[2022-12-08] MEDS: CLOBETASOL 0.05% TOPICAL SCH ×2 (10:35→21:22)
[2022-12-08] MEDS ORDERED: Sulfur Hexaflouride MICROSPHR 25 MG VIAL ONE (11:55)
[2022-12-08 18:44] LABS: BM Chromosome Source L PIC; BM Result Summary Normal
[2022-12-08] MEDS: guaiFENesin/CODIENE 100mg/10mg 5 ML UDC PO SCH (21:16)
[2022-12-09 06:27] LABS: Hematocrit 24 % (35-47); Hemoglobin 7.5 g/dL (12.0-16.0); Mean Corpuscular HGB Conc 32 g/dL (31-36); Mean Corpuscular Hemoglobin 34 pg (27-31); Mean Corpuscular Volume 105 fL (80-97); Mean Platelet Volume 8.8 fL (7.4-10.4); Platelet Count 195 10^3/uL (150-450); Red Blood Count 2.24 10^6 /uL (3.70-4.87); Red Cell Distribution Width 29 % (10-15); White Blood Count 23.3 10^3/uL (3.5-10.8)
[2022-12-09 06:58] LABS: ABS Basophils 0.1 10^3/ul (0-0.2); ABS Eosinophils 0.1 10^3/ul (0-0.6); ABS Lymphocytes 0.8 10^3/ul (1.0-4.8); ABS Monocytes 2.4 10^3/ul (0-0.8); ABS Nucleated RBC 0.2 10^3/ul; Anisocytosis 2+; Calcium 7.7 mg/dL (8.6-10.3); Creatinine, Serum 1.35 mg/dL (0.51-0.95); Eosinophil % 0.2 %; Lymphocyte % 3.6 %; Macrocytosis 1+; Magnesium 2.1 mg/dL (1.9-2.7); Nucleated Red Blood Cells % 0.8; Polychromasia 1+; eGFR CKD-EPI 46.1 (>60)
[2022-12-09] MEDS: CLOBETASOL 0.05% TOPICAL SCH ×2 (09:10→20:51)
[2022-12-09 14:17] LABS: Urine Appearance Clear; Urine Bilirubin Negative (Negative); Urine Blood 2+ (Negative); Urine Color Colorless; Urine Glucose 1+(50 mg/dL) (Negative); Urine Ketones Negative (Negative); Urine Nitrite Negative (Negative); Urine Protein Negative (Negative); Urine Specific Gravity 1.004 (1.002-1.030); Urine Urobilinogen Negative (Negative)
[2022-12-09 14:20] LABS: Urine Bacteria Absent (Absent); Urine Red Blood Cell 3+(>10/hpf) (Absent); Urine Squamous Epithelial Cell Present (Absent); Urine White Blood Cell 2+(11-20/hpf) (Absent); Urine Yeast Present (Absent)
[2022-12-09 15:59] LABS: Corrected Retic Count 7.3 % (0.5-1.5); Hematocrit for Retic CNT 26 % (35-47); Immature Retic Fraction 0.44; RBC Retic Count 2.42 10^6/uL (3.70-4.87)
[2022-12-09] MEDS: guaiFENesin/CODIENE 100mg/10mg 5 ML UDC PO SCH (20:50)
[2022-12-10 06:12] LABS: Creatinine, Serum 1.42 mg/dL (0.51-0.95); Magnesium 2.1 mg/dL (1.9-2.7); Potassium 3.9 mmol/L (3.5-5.0); eGFR CKD-EPI 43.4 (>60)
[2022-12-10] MEDS ORDERED: Potassium Chlor 20 meq TAB.ER PO ONE (07:48)
[2022-12-10] MEDS: CLOBETASOL 0.05% TOPICAL SCH ×2 (09:18→20:51)
[2022-12-10] MEDS: guaiFENesin/CODIENE 100mg/10mg 5 ML UDC PO SCH (20:52)
[2022-12-11 07:49] LABS: Calcium 8.2 mg/dL (8.6-10.3); Creatinine, Serum 1.3 mg/dL (0.51-0.95); Potassium 3.7 mmol/L (3.5-5.0); eGFR CKD-EPI 48.3 (>60)
[2022-12-11] MEDS: CLOBETASOL 0.05% TOPICAL SCH (08:49)
[2022-12-11 09:16] LABS: Hematocrit 25 % (35-47); Hemoglobin 7.7 g/dL (12.0-16.0); Mean Corpuscular HGB Conc 32 g/dL (31-36); Mean Corpuscular Hemoglobin 34 pg (27-31); Mean Corpuscular Volume 109 fL (80-97); Mean Platelet Volume 8.5 fL (7.4-10.4); Platelet Count 201 10^3/uL (150-450); Red Blood Count 2.25 10^6 /uL (3.70-4.87); Red Cell Distribution Width 33 % (10-15); White Blood Count 17.8 10^3/uL (3.5-10.8)
[2022-12-11 09:18] LABS: Albumin 2.5 g/dL (3.2-5.2); Globulin 2.5 g/dL (2-4); Total Bilirubin 0.6 mg/dL (0.2-1.0)
[2022-12-11 09:38] VITALS: BP 118/52
[2022-12-11 10:47] LABS: Hypochromasia 1+; Microcytosis 1+; Polychromasia 2+
[2022-12-11 10:48] LABS: Acanthocytes 2+; Anisocytosis 3+; Macrocytosis 1+; Schistocytes 1+; Spherocytes 1+; Stomatocytes 1+; Tear Drop Cells 1+
[2022-12-11 10:52] LABS: ABS Basophils 0.1 10^3/ul (0-0.2); ABS Eosinophils 0.1 10^3/ul (0-0.6); ABS Lymphocytes 0.8 10^3/ul (1.0-4.8); ABS Monocytes 2.1 10^3/ul (0-0.8); ABS Neutrophils 14.7 10^3/ul (1.5-7.7); ABS Nucleated RBC 0.1 10^3/ul; Eosinophil % 0.3 %; Lymphocyte % 4.3 %; Nucleated Red Blood Cells % 0.3
[2022-12-11] MEDS ORDERED: Potassium Chlor 20 meq TAB.ER PO ONE (11:16)
[2022-12-11 16:04] LABS: Complement C3 99 mg/dL (75 - 175)
[2022-12-11 20:03] LABS: Complement CH50 67 U/mL (30-75)
== END 2022-12-11 13:05 | disposition home or self-care (01) | DRG 205 ==
LOC: ED 12:45 → SUATTDRO 16:44 → EDHOLD 16:44 → MEDTELE 22:27
PROVIDERS: ADMIT Internal Medicine; ATTEND Internal Medicine

== ENCOUNTER 2023-12-23 23:31 | Inpatient (IN) ==
[2023-12-24] MEDS: Ondansetron 4 mg VIAL 2 MG/ML 2 ml VIAL IV ONE (01:27)
[2023-12-24] MEDS: Lactated Ringers 1000 ml BAG 1,000 ML IV ONE ×2 (01:27→02:46)
[2023-12-24] MEDS: Acetaminophen IV 1 GM/100ML 1,000 MG/100 ML BAG IV ONE (01:36)
[2023-12-24 01:40] LABS: ABS Basophils 0.1 10^3/uL (0.0-0.1); ABS Lymphocytes 0.4 10^3/uL (1.0-4.8); ABS Monocytes 0.7 10^3/uL (0.0-0.9); ABS Neutrophils 9.7 10^3/uL (1.5-7.6); Eosinophil % 0.2 %; Hematocrit 29.7 % (35-45); Hemoglobin 10.2 g/dL (11.5-14.3); Lymphocyte % 3.9 %; Mean Corpuscular Hemoglobin 30.7 pg (27-33); Mean Corpuscular Hgb Conc 34.3 g/dL (31-36); Mean Corpuscular Volume 89.6 fL (80-97); Mean Platelet Volume 7.1 fL (7.5-11.2); Platelet Count 205 10^3/uL (150-450); Red Blood Count 3.32 10^6/uL (3.63-4.92); Red Cell Distribution Width 16.9 % (12-17); White Blood Count 10.9 10^3/uL (3.8-11.8)
[2023-12-24 02:07] LABS: Albumin 3.5 g/dL (3.2-5.2); Albumin/Globulin Ratio 1.5 (1-3); C Reactive Protein 106.35 mg/L (<8.01); Calcium 7.7 mg/dL (8.6-10.3); Creatinine, Serum 1.07 mg/dL (0.51-0.95); Globulin 2.3 g/dL (2-4); Potassium 3.4 mmol/L (3.5-5.0); Total Bilirubin 0.4 mg/dL (0.2-1.0); Total Protein 5.8 g/dL (6.4-8.9); eGFR CKD-EPI 60.6 (>60)
[2023-12-24] MEDS: Droperidol 5 MG/2 ML 2 ML VIAL IV ONE (02:43)
[2023-12-24] MEDS: fentaNYL 100 mcg/2 ml 50 MCG/ML VIAL IV SLOW PU ONE ×2 (03:16→03:21)
[2023-12-24 03:18] LABS: Activated Partial Thrombo Time 30.9 seconds (26.0-38.0); INR 1.06 (0.83-1.13)
[2023-12-24] MEDS: Meropenem 2 GM in NS 0.9% 100 ml BAG 100 ML IVPB ONE (03:18)
[2023-12-24 03:23] LABS: High Sensitivity Troponin 1 Hr 23 pg/mL (<15)
[2023-12-24] MEDS: Lidocaine 1% MPF 5 ML VIAL INJ ONE (03:49)
[2023-12-24 03:51] LABS: Body Fluid Source Cerebral Spinal
[2023-12-24 04:23] LABS: Body Fluid Appearance Cloudy; Body Fluid Color Colorless
[2023-12-24 04:30] LABS: CSF Glucose < 30 mg/dL (40-70)
[2023-12-24] MEDS ORDERED: Vancomycin per Pharmacy 1 EA NOTE FOLLOW UP PRN (04:33)
[2023-12-24 04:36] LABS: CSF Tube # 4
[2023-12-24] MEDS ORDERED: Polyethylene Glycol 3350 17 GM PACKET PO PRN (04:36)
[2023-12-24] MEDS ORDERED: Senna TAB 8.6 mg TAB PO PRN (04:36)
[2023-12-24] MEDS ORDERED: Ondansetron 4 mg VIAL 2 MG/ML 2 ml VIAL IV PRN (04:36)
[2023-12-24 04:47] LABS: CSF Body Fluid WBC 2608 /mcL
[2023-12-24 05:02] LABS: Urine Appearance Turbid; Urine Bacteria 2+ /HPF (Absent); Urine Bilirubin Negative (Negative); Urine Blood 2+ (Negative); Urine Color Light-Yellow; Urine Glucose 4+ (>=1000 mg/dL) (Negative); Urine Ketones 1+ (Negative); Urine Nitrite 1+ (Negative); Urine Protein 1+ (>=30 mg/dL) (Negative); Urine Red Blood Cell 3+(>10/hpf) /HPF (0-Trace); Urine Specific Gravity 1.022 (1.002-1.030); Urine Squamous Epithelial Cell Present /HPF (Absent); Urine Urobilinogen Negative (Negative); Urine White Blood Cell 3+(>20/hpf) /HPF (0-Trace)
[2023-12-24] MEDS: Acyclovir IV 620 MG in NS 0.9% 100 ml BAG 100 ML IVPB SCH (05:13)
[2023-12-24] MEDS: KCL 20 MEQ/100 ML IVPREMIX 20 MEQ/100 ML BAG IV SCH (05:13)
[2023-12-24] MEDS: Vancomycin 1,750 MG in NS 0.9% 500 ml BAG 500 ML IVPB ONE (05:13)
[2023-12-24 05:30] LABS: Body Fluid Mono 1 %; Body Fluid Total Cells Counted 200
[2023-12-24] MEDS ORDERED: Norepinephrine 4 MG/250mL D5W 4,000 MCG/250 ML BAG IV ONE (06:39)
[2023-12-24] MEDS: Ketamine HCL 50 mg/ml 10 ml VIAL (500 MG) IV ONE (06:54)
[2023-12-24] MEDS: Norepinephrine 4 MG/250mL D5W 4,000 MCG/250 ML BAG IV SCH (06:55)
[2023-12-24] MEDS: Rocuronium 50 mg VIAL 10 mg/ml 5 ml VIAL (50 mg) IV ONE (06:55)
[2023-12-24] MEDS: Midazolam PREMIXBAG 1 MG/ML NS 100 ML IV SCH (07:17)
[2023-12-24] MEDS: Dexamethasone IV 4 MG/ML VIAL 1 ml VIAL IV SLOW PU SCH (07:17)
[2023-12-24] MEDS ORDERED: Acetaminophen IV 1 GM/100ML 1,000 MG/100 ML BAG IV PRN (08:52)
[2023-12-24] MEDS: Mannitol 25% (12.5 GM) 50 ML 12.5 GM/50 ML VIAL IV ONE (09:45)
[2023-12-24] MEDS: Meropenem 2 GM in NS 0.9% 100 ml BAG 100 ML IVPB SCH (11:05)
[2023-12-24 11:10] LABS: PCO2 Arterial 25 mmHg (35-45); PO2 Arterial 168 mmHg (80-100)
[2023-12-24] MEDS: levETIRAcetam 1000MG IVPREMIX 1,000 MG/100 ML BAG IVPB ONE (11:29)
[2023-12-24] MEDS: MANNITOL IV ONE (11:43)
[2023-12-24] MEDS: Propofol 10 mg/ml 100 ML BTL 1,000 MG/100 ML BTL IV SCH (11:48)
[2023-12-24] MEDS: Furosemide 40 mg/4 ml IV VIAL IV SLOW PU ONE (11:49)
[2023-12-24] MEDS: Hydrocortisone INJ 100 MG/2ML 2 ML VIAL IV SCH (11:49)
[2023-12-24] MEDS: Mannitol 25% (12.5 GM) 50 ML 12.5 GM/50 ML VIAL ONE ×2 (11:56→11:57)
[2023-12-24] MEDS ORDERED: KCL 20 MEQ/100 ML IVPREMIX 20 MEQ/100 ML BAG IV SCH (12:00)
[2023-12-24] MEDS ORDERED: levETIRAcetam IV 750 MG in NS 0.9% 100 ml BAG 100 ML IVPB SCH ×2 (12:00→21:00)
[2023-12-24 12:06] VITALS: BP 108/70
[2023-12-24] MEDS ORDERED: Vancomycin 1,250 MG in NS 0.9% 250 ml 250 ML IVPB SCH (18:00)
[2023-12-24] MEDS ORDERED: Enoxaparin 40 MG/0.4 ML SYR SUBCUT SCH (21:00)
[2023-12-26] MEDS ORDERED: Vancomycin Trough Check NOTE FOLLOW UP ONE (05:30)
[2023-12-27 18:59] LABS: Anaplasma phagocytophilum Negative (Negative); B. miyamotoi PCR, B Negative (Negative); Babesia divergens/MO-1 Negative (Negative); Babesia ducani Negative (Negative); Ehrlichia chaffeensis Negative (Negative); Ehrlichia ewingii/canis Negative (Negative); Ehrlichia muris eauclairensis Negative (Negative)
== END 2023-12-24 13:15 | disposition short-term general hospital (02) | DRG 49 ==
LOC: ED 23:31 → EDHOLD 12-24 04:36 → ICU 12-24 07:01
PROVIDERS: ADMIT Internal Medicine; ATTEND Internal Medicine

== ENCOUNTER 2024-01-22 08:18 | Inpatient (IN) ==
[2024-01-22] MEDS: Enoxaparin 40 MG/0.4 ML SYR SUBCUT SCH (16:42)
[2024-01-22] MEDS: Cholecalciferol (VIT D3) 1,000 unit TAB PO SCH (16:43)
[2024-01-22] MEDS: Senna TAB 8.6 mg TAB PO SCH (20:54)
[2024-01-22] MEDS: Carboxymethylcellulose/Glyceri 10 ML OPHTH.GEL lubricant eye gel RIGHT EYE SCH (20:55)
[2024-01-23] MEDS: Aspirin EC 81 mg TAB.EC (enteric coated) PO SCH (08:11)
[2024-01-24 07:09] LABS: ABS Eosinophils 0.1 10^3/uL (0.0-0.5); ABS Lymphocytes 0.5 10^3/uL (1.0-4.8); ABS Monocytes 0.5 10^3/uL (0.0-0.9); ABS Neutrophils 6.8 10^3/uL (1.5-7.6); Eosinophil % 1.2 %; Hematocrit 22.5 % (35-45); Hemoglobin 7.5 g/dL (11.5-14.3); Lymphocyte % 5.7 %; Mean Corpuscular Hemoglobin 31.8 pg (27-33); Mean Corpuscular Hgb Conc 33.2 g/dL (31-36); Mean Corpuscular Volume 95.9 fL (80-97); Mean Platelet Volume 7.5 fL (7.5-11.2); Platelet Count 170 10^3/uL (150-450); Red Blood Count 2.34 10^6/uL (3.63-4.92); Red Cell Distribution Width 22.4 % (12-17); White Blood Count 7.9 10^3/uL (3.8-11.8)
[2024-01-24 07:30] LABS: Albumin 3.5 g/dL (3.2-5.2); Albumin/Globulin Ratio 1.7 (1-3); Creatinine, Serum 0.78 mg/dL (0.51-0.95); Globulin 2.1 g/dL (2-4); Potassium 3.8 mmol/L (3.5-5.0); Total Bilirubin 0.4 mg/dL (0.2-1.0); Total Protein 5.6 g/dL (6.4-8.9)
[2024-01-24] MEDS: Carboxymethylcellulose/Glyceri 10 ML OPHTH.GEL lubricant eye gel RIGHT EYE SCH (13:26)
[2024-01-25 06:46] LABS: Hemoglobin 9.7 g/dL (11.5-14.3); Mean Corpuscular Hemoglobin 31.9 pg (27-33); Mean Corpuscular Hgb Conc 33.6 g/dL (31-36); Mean Corpuscular Volume 94.9 fL (80-97); Mean Platelet Volume 7.8 fL (7.5-11.2); Platelet Count 196 10^3/uL (150-450); Red Blood Count 3.05 10^6/uL (3.63-4.92); Red Cell Distribution Width 22.1 % (12-17); White Blood Count 8.8 10^3/uL (3.8-11.8)
[2024-01-25 08:33] LABS: ABS Eosinophils 0.1 10^3/uL (0.0-0.5); ABS Lymphocytes 0.6 10^3/uL (1.0-4.8); ABS Monocytes 0.7 10^3/uL (0.0-0.9); ABS Neutrophils 7.4 10^3/uL (1.5-7.6); ABS Nucleated RBC 0.01 10^3/ul; Lymphocyte % 7.1 %; Nucleated Red Blood Cells % 0.1 %/100WBC (0.0-0.8)
[2024-01-26] MEDS: Ondansetron ODT 4 mg TAB 4 MG TAB PO PRN (16:19)
[2024-01-27] MEDS: Magnesium Hydroxide LIQ 30 ML UDC PO PRN (13:14)
[2024-01-27] MEDS: D5NS 0.9% 1000 ml BAG 1,000 ML IV SCH (18:37)
[2024-01-27] MEDS: Senna TAB 8.6 mg TAB PO SCH (21:25)
[2024-01-28 18:24] LABS: Hemoglobin 9.5 g/dL (11.5-14.3); Mean Corpuscular Hgb Conc 33.9 g/dL (31-36); Mean Corpuscular Volume 94.4 fL (80-97); Mean Platelet Volume 8.1 fL (7.5-11.2); Platelet Count 169 10^3/uL (150-450); Red Blood Count 2.97 10^6/uL (3.63-4.92); Red Cell Distribution Width 21.4 % (12-17); White Blood Count 7.1 10^3/uL (3.8-11.8)
[2024-01-28 19:00] LABS: ABS Basophils 0.1 10^3/uL (0.0-0.1); ABS Lymphocytes 0.4 10^3/uL (1.0-4.8); ABS Monocytes 0.3 10^3/uL (0.0-0.9); ABS Neutrophils 6.3 10^3/uL (1.5-7.6); ABS Nucleated RBC 0.01 10^3/ul; Anisocytosis 1+; Lymphocyte % 5.4 %; Nucleated Red Blood Cells % 0.1 %/100WBC (0.0-0.8)
[2024-01-28 19:21] VITALS: BP 60/38
[2024-01-28 19:58] LABS: Calcium 7.9 mg/dL (8.6-10.3); Creatinine, Serum 0.79 mg/dL (0.51-0.95); Potassium 3.5 mmol/L (3.5-5.0); eGFR CKD-EPI 86.7 (>60)
[2024-01-28] MEDS: Metoprolol Tartrate 5 mg VIAL 5 ml VIAL (1 mg/ml) IV ONE (20:03)
== END 2024-01-28 19:20 | disposition short-term general hospital (02) | DRG 49 ==
LOC: PMRU 12:30
PROVIDERS: ADMIT Physical Medicine & Rehabilitation; ATTEND Physical Medicine & Rehabilitation

== ENCOUNTER 2024-01-28 19:09 | Inpatient (IN) ==
[2024-01-28] MEDS: Norepinephrine 4 MG/250mL D5W 4,000 MCG/250 ML BAG IV SCH ×2 (19:47→22:25)
[2024-01-28] MEDS: Norepinephrine 4 MG/250mL D5W 4,000 MCG/250 ML BAG IV ONE (20:17)
[2024-01-28] MEDS: Etomidate 20 mg/10 ml 2 MG/ML 10 ml VIAL IV ONE (20:57)
[2024-01-28] MEDS: Metoprolol Tartrate 5 mg VIAL 5 ml VIAL (1 mg/ml) IV ONE (20:57)
[2024-01-28 21:45] LABS: PCO2 Arterial 32 mmHg (35-45); PO2 Arterial 155 mmHg (80-100)
[2024-01-28] MEDS: Iohexol 300 (CONTRAST) 10 ML SDV IV ONE (22:16)
[2024-01-28 23:20] LABS: Urine Appearance Clear; Urine Bilirubin Negative (Negative); Urine Blood Trace (Negative); Urine Color Light-Yellow; Urine Glucose 3+ (>=300 mg/dL) (Negative); Urine Ketones Negative (Negative); Urine Nitrite 1+ (Negative); Urine Protein Trace (Negative); Urine Urobilinogen Negative (Negative)
[2024-01-29] LABS: Urine Bacteria 2+ /HPF (Absent); Urine Red Blood Cell Trace(0-2/hpf) /HPF (0-Trace); Urine Squamous Epithelial Cell Present /HPF (Absent); Urine White Blood Cell Trace(0-5/hpf) /HPF (0-Trace)
[2024-01-29] MEDS: Azithromycin 500 mg/250 ml NS 500 MG/250 ML BAG IVPB SCH (00:15)
[2024-01-29] MEDS: cefTRIAXone 1 gm/50 mL D5W 1 GM/50 ML BAG IV SCH (00:15)
[2024-01-29] MEDS: Metoprolol Tartrate 5 mg VIAL 5 ml VIAL (1 mg/ml) IV ONE (01:57)
[2024-01-29 05:52] LABS: Hematocrit 29.2 % (35-45); Mean Corpuscular Hemoglobin 32.1 pg (27-33); Mean Corpuscular Hgb Conc 34.2 g/dL (31-36); Mean Corpuscular Volume 93.7 fL (80-97); Mean Platelet Volume 7.6 fL (7.5-11.2); Platelet Count 220 10^3/uL (150-450); Red Blood Count 3.12 10^6/uL (3.63-4.92); Red Cell Distribution Width 21.7 % (12-17); White Blood Count 9.1 10^3/uL (3.8-11.8)
[2024-01-29 06:18] LABS: Albumin/Globulin Ratio 1.4 (1-3); Creatinine, Serum 0.91 mg/dL (0.51-0.95); Globulin 2.1 g/dL (2-4); Magnesium 1.9 mg/dL (1.9-2.7); Potassium 3.5 mmol/L (3.5-5.0); Total Bilirubin 0.3 mg/dL (0.2-1.0); Total Protein 5.1 g/dL (6.4-8.9); eGFR CKD-EPI 73.1 (>60)
[2024-01-29] MEDS: KCL 20 MEQ/100 ML IVPREMIX 20 MEQ/100 ML BAG IV ONE (06:34)
[2024-01-29 07:18] LABS: ABS Basophils 0.1 10^3/uL (0.0-0.1); ABS Lymphocytes 0.9 10^3/uL (1.0-4.8); ABS Monocytes 0.8 10^3/uL (0.0-0.9); ABS Neutrophils 7.3 10^3/uL (1.5-7.6); ABS Nucleated RBC 0.01 10^3/ul; Anisocytosis 2+; Eosinophil % 0.1 %; Lymphocyte % 9.9 %; Nucleated Red Blood Cells % 0.1 %/100WBC (0.0-0.8); Polychromasia 1+
[2024-01-29] MEDS: Cholecalciferol (VIT D3) 1,000 unit TAB PO SCH (09:00)
[2024-01-29] MEDS: Senna TAB 8.6 mg TAB PO SCH (09:02)
[2024-01-29] MEDS: Docusate LIQ 100 MG/10 ML UDC PO SCH (09:03)
[2024-01-29] MEDS ORDERED: Sulfur Hexaflouride MICROSPHR 25 MG VIAL ONE (10:36)
[2024-01-29] MEDS: Magnesium CITRATE LIQ 300 ML BTL PO ONE (11:02)
[2024-01-29] MEDS: Ondansetron 4 mg VIAL 2 MG/ML 2 ml VIAL IV ONE (13:06)
[2024-01-29] MEDS: Enoxaparin 40 MG/0.4 ML SYR SUBCUT SCH (17:52)
[2024-01-30 05:29] LABS: Hemoglobin 7.8 g/dL (11.5-14.3); Mean Corpuscular Hemoglobin 32.1 pg (27-33); Mean Corpuscular Volume 94.5 fL (80-97); Mean Platelet Volume 7.3 fL (7.5-11.2); Platelet Count 130 10^3/uL (150-450); Red Blood Count 2.43 10^6/uL (3.63-4.92); Red Cell Distribution Width 22.2 % (12-17); White Blood Count 4.7 10^3/uL (3.8-11.8)
[2024-01-30 06:29] LABS: ABS Lymphocytes 0.3 10^3/uL (1.0-4.8); ABS Monocytes 0.4 10^3/uL (0.0-0.9); Anisocytosis 2+; Eosinophil % 0.2 %; Lymphocyte % 5.9 %
[2024-01-30 06:44] LABS: Albumin 2.8 g/dL (3.2-5.2); Albumin/Globulin Ratio 1.5 (1-3); Calcium 8.1 mg/dL (8.6-10.3); Creatinine, Serum 0.89 mg/dL (0.51-0.95); Globulin 1.9 g/dL (2-4); Magnesium 2.2 mg/dL (1.9-2.7); Potassium 3.9 mmol/L (3.5-5.0); Total Bilirubin 0.2 mg/dL (0.2-1.0); Total Protein 4.7 g/dL (6.4-8.9); eGFR CKD-EPI 75.1 (>60)
[2024-01-30] MEDS: KCL 20 MEQ/100 ML IVPREMIX 20 MEQ/100 ML BAG IV SCH (08:34)
[2024-01-30 10:23] LABS: Hematocrit 23.6 % (35-45); Hemoglobin 7.9 g/dL (11.5-14.3)
[2024-01-31 05:08] LABS: Hematocrit 21.9 % (35-45); Hemoglobin 7.4 g/dL (11.5-14.3); Mean Corpuscular Hemoglobin 32.2 pg (27-33); Mean Corpuscular Hgb Conc 33.7 g/dL (31-36); Mean Corpuscular Volume 95.3 fL (80-97); Mean Platelet Volume 7.1 fL (7.5-11.2); Platelet Count 123 10^3/uL (150-450); White Blood Count 4.2 10^3/uL (3.8-11.8)
[2024-01-31 05:33] LABS: Albumin 2.8 g/dL (3.2-5.2); Albumin/Globulin Ratio 1.5 (1-3); Calcium 7.8 mg/dL (8.6-10.3); Creatinine, Serum 0.83 mg/dL (0.51-0.95); Globulin 1.9 g/dL (2-4); Magnesium 2.1 mg/dL (1.9-2.7); Potassium 4.1 mmol/L (3.5-5.0); Total Bilirubin 0.2 mg/dL (0.2-1.0); Total Protein 4.7 g/dL (6.4-8.9); eGFR CKD-EPI 81.7 (>60)
[2024-01-31 05:35] LABS: ABS Lymphocytes 0.3 10^3/uL (1.0-4.8); ABS Monocytes 0.3 10^3/uL (0.0-0.9); ABS Neutrophils 3.5 10^3/uL (1.5-7.6); ABS Nucleated RBC 0.01 10^3/ul; Eosinophil % 0.4 %; Lymphocyte % 6.9 %; Nucleated Red Blood Cells % 0.2 %/100WBC (0.0-0.8)
[2024-01-31 05:36] LABS: Anisocytosis 2+
[2024-01-31] MEDS: Carboxymethylcellulose/Glyceri 10 ML OPHTH.GEL lubricant eye gel RIGHT EYE SCH (10:46)
[2024-02-01 05:23] LABS: Hematocrit 22.5 % (35-45); Hemoglobin 7.6 g/dL (11.5-14.3); Mean Corpuscular Hemoglobin 32.2 pg (27-33); Mean Corpuscular Volume 94.6 fL (80-97); Mean Platelet Volume 7.4 fL (7.5-11.2); Platelet Count 126 10^3/uL (150-450); Red Blood Count 2.38 10^6/uL (3.63-4.92); Red Cell Distribution Width 22.1 % (12-17); White Blood Count 3.8 10^3/uL (3.8-11.8)
[2024-02-01 07:24] LABS: ABS Lymphocytes 0.3 10^3/uL (1.0-4.8); ABS Monocytes 0.3 10^3/uL (0.0-0.9); ABS Neutrophils 3.2 10^3/uL (1.5-7.6); Anisocytosis 2+; Eosinophil % 0.1 %; Nucleated Red Blood Cells % 0.1 %/100WBC (0.0-0.8); Polychromasia 1+
[2024-02-01] MEDS ORDERED: Albuterol HFA INHALER 8 gm MDI INH PRN (08:17)
[2024-02-01] MEDS ORDERED: Ondansetron 4 mg VIAL 2 MG/ML 2 ml VIAL IV PRN (22:50)
[2024-02-02 06:05] LABS: Hematocrit 23.5 % (35-45); Hemoglobin 7.9 g/dL (11.5-14.3); Mean Corpuscular Hemoglobin 31.8 pg (27-33); Mean Corpuscular Hgb Conc 33.5 g/dL (31-36); Mean Corpuscular Volume 94.9 fL (80-97); Mean Platelet Volume 7.5 fL (7.5-11.2); Platelet Count 131 10^3/uL (150-450); Red Blood Count 2.48 10^6/uL (3.63-4.92); Red Cell Distribution Width 21.2 % (12-17); White Blood Count 4.1 10^3/uL (3.8-11.8)
[2024-02-02 09:33] VITALS: BP 130/72
[2024-02-02 09:43] LABS: ABS Lymphocytes 0.3 10^3/uL (1.0-4.8); ABS Monocytes 0.3 10^3/uL (0.0-0.9); ABS Neutrophils 3.5 10^3/uL (1.5-7.6); ABS Nucleated RBC 0.01 10^3/ul; Anisocytosis 2+; Eosinophil % 0.2 %; Lymphocyte % 6.9 %; Nucleated Red Blood Cells % 0.1 %/100WBC (0.0-0.8)
== END 2024-02-02 09:57 | DRG 201 ==
LOC: ICU 19:44 → SUATTDRO 19:44 → MED 01-31 01:27
PROVIDERS: ADMIT Hospitalist; ATTEND Hospitalist

== ENCOUNTER 2024-02-02 08:07 | Inpatient (IN) ==
[2024-02-02] MEDS: Enoxaparin 40 MG/0.4 ML SYR SUBCUT SCH (16:14)
[2024-02-02] MEDS: Carboxymethylcellulose/Glyceri 10 ML OPHTH.GEL lubricant eye gel BOTH EYES SCH (21:23)
[2024-02-02] MEDS: Senna TAB 8.6 mg TAB PO SCH (21:25)
[2024-02-02] MEDS: cefTRIAXone 1 gm/50 mL D5W 1 GM/50 ML BAG IV SCH (21:56)
[2024-02-03 07:14] LABS: Hematocrit 24.1 % (35-45); Hemoglobin 8.2 g/dL (11.5-14.3); Mean Corpuscular Hemoglobin 32.2 pg (27-33); Mean Corpuscular Hgb Conc 34.2 g/dL (31-36); Mean Corpuscular Volume 94.3 fL (80-97); Mean Platelet Volume 7.1 fL (7.5-11.2); Platelet Count 139 10^3/uL (150-450); Red Blood Count 2.55 10^6/uL (3.63-4.92); Red Cell Distribution Width 22.3 % (12-17); White Blood Count 4.9 10^3/uL (3.8-11.8)
[2024-02-03 07:28] LABS: Albumin 2.9 g/dL (3.2-5.2); Albumin/Globulin Ratio 1.5 (1-3); Calcium 7.9 mg/dL (8.6-10.3); Creatinine, Serum 0.88 mg/dL (0.51-0.95); Potassium 3.5 mmol/L (3.5-5.0); Total Bilirubin 0.3 mg/dL (0.2-1.0); Total Protein 4.9 g/dL (6.4-8.9); eGFR CKD-EPI 76.1 (>60)
[2024-02-03 07:41] LABS: ABS Lymphocytes 0.4 10^3/uL (1.0-4.8); ABS Monocytes 0.3 10^3/uL (0.0-0.9); ABS Neutrophils 4.2 10^3/uL (1.5-7.6); ABS Nucleated RBC 0.01 10^3/ul; Anisocytosis 2+; Eosinophil % 0.1 %; Lymphocyte % 7.6 %; Nucleated Red Blood Cells % 0.3 %/100WBC (0.0-0.8)
[2024-02-03] MEDS: Lidocaine PATCH 5% PATCH TRANSDERM SCH (07:47)
[2024-02-03] MEDS: Cholecalciferol (VIT D3) 1,000 unit TAB PO SCH (07:49)
[2024-02-03] MEDS: Aspirin EC 81 mg TAB.EC (enteric coated) PO SCH (07:50)
[2024-02-07] MEDS: Senna TAB 8.6 mg TAB PO PRN (20:49)
[2024-02-08] MEDS: Ondansetron ODT 4 mg TAB 4 MG TAB PO PRN (09:25)
[2024-02-08] MEDS: Magnesium Hydroxide LIQ 30 ML UDC PO PRN (15:52)
[2024-02-08] MEDS: Senna TAB 8.6 mg TAB PO SCH (20:52)
[2024-02-10 04:57] LABS: Hematocrit 28.3 % (35-45); Hemoglobin 9.5 g/dL (11.5-14.3); Mean Corpuscular Hemoglobin 32.4 pg (27-33); Mean Corpuscular Hgb Conc 33.6 g/dL (31-36); Mean Corpuscular Volume 96.3 fL (80-97); Mean Platelet Volume 7.6 fL (7.5-11.2); Platelet Count 177 10^3/uL (150-450); Red Blood Count 2.93 10^6/uL (3.63-4.92); Red Cell Distribution Width 22.7 % (12-17); White Blood Count 6.5 10^3/uL (3.8-11.8)
[2024-02-10 05:49] LABS: Albumin 3.3 g/dL (3.2-5.2); Albumin/Globulin Ratio 1.9 (1-3); Calcium 8.7 mg/dL (8.6-10.3); Creatinine, Serum 0.89 mg/dL (0.51-0.95); Globulin 1.7 g/dL (2-4); Potassium 4.2 mmol/L (3.5-5.0); Total Bilirubin 0.5 mg/dL (0.2-1.0); eGFR CKD-EPI 75.1 (>60)
[2024-02-10 07:11] LABS: ABS Lymphocytes 0.8 10^3/uL (1.0-4.8); ABS Monocytes 0.5 10^3/uL (0.0-0.9); ABS Neutrophils 5.1 10^3/uL (1.5-7.6); ABS Nucleated RBC 0.01 10^3/ul; Anisocytosis 2+; Eosinophil % 0.3 %; Lymphocyte % 12.3 %; Nucleated Red Blood Cells % 0.1 %/100WBC (0.0-0.8)
[2024-02-12 06:06] VITALS: BP 116/72
== END 2024-02-12 11:45 | disposition home or self-care (01) | DRG 49 ==
LOC: PMRU 11:15
PROVIDERS: ADMIT Physical Medicine & Rehabilitation; ATTEND Physical Medicine & Rehabilitation